=== PATIENT | female | born 2000 | race Caucasian/White ===

== ENCOUNTER 2021-02-14 03:28 | Emergency (ER) | payer BC ==
[2021-02-14] MEDS ORDERED: KEPPRA 500MG500 MG PO (03:50)
[2021-02-14] MEDS ORDERED: LEXAPRO 10MG10 MG PO (03:51)
[2021-02-14] MEDS ORDERED: LO LOESTRIN FE1 TAB PO (03:51)
[2021-02-14 04:37] LABS: HEMOGLOBIN 12.9 g/dL (12.5-16.0); MEAN CELL VOLUME 90 fl (78-100); MEAN CORPUSCULAR HEMOGLOBIN 30 pg (27-31); MEAN CORPUSCULAR HGB CONC 33 g/dL (33-37); MEAN PLATELET VOLUME 10.8 fl (7.4-10.4); PLATELET COUNT 167 K/mm3 (130-400); RED BLOOD COUNT 4.32 M/mm3 (4.10-5.30); RED CELL DISTRIBUTION WIDTH 12.5 % (11.5-14.5)
[2021-02-14 04:38] LABS: ALBUMIN 3.7 g/dL (3.5-5.0); WHITE BLOOD COUNT 23.6 K/mm3 (4.8-10.8)
[2021-02-14 04:39] LABS: POTASSIUM 3.9 mmol/L (3.5-5.1)
[2021-02-14 04:40] LABS: CALCIUM 8.8 mg/dL (8.3-10.5)
[2021-02-14 04:41] LABS: TOTAL PROTEIN 7.2 g/dL (6.4-8.3)
[2021-02-14 04:43] LABS: TOTAL BILIRUBIN 1.2 mg/dL (0.2-1.2)
[2021-02-14 04:56] LABS: BAND 15 % (0-10); LYMPHOCYTE 3 % (20-51); MONOCYTE 1 % (3-10); NEUTROPHILS 81 % (42-75)
[2021-02-14 04:57] LABS: URINE APPEARANCE CLOUDY; URINE COLOR YELLOW
[2021-02-14 04:58] LABS: PH-URINE 5.5 (5.0 - 8.0); URINE BILIRUBIN NEGATIVE (NEGATIVE); URINE BLOOD 50 ery/uL (NEGATIVE); URINE GLUCOSE NEGATIVE (NEGATIVE); URINE KETONE NEGATIVE (NEGATIVE); URINE LEUKOCYTE ESTERASE 2+ (NEGATIVE); URINE NITRATE POSITIVE (NEGATIVE); URINE PROTEIN(semi-quant) 2+ mg/dL (NEGATIVE); URINE UROBILINOGEN 1 mg/dL (NORMAL); URINE WBC >50 /hpf (0-3)
[2021-02-14] MEDS ORDERED: ZOFRAN ODT4 MG PO (05:44)
[2021-02-14] MEDS ORDERED: CIPRO500 M1 PO (05:44)
[2021-02-14 06:00] VITALS: BP 97/46
== END 2021-02-14 06:00 | disposition home or self-care (01) ==
LOC: ED 03:28
PROVIDERS: Internal Medicine
DX: N10 Acute pyelonephritis (principal); M25.511 Pain in right shoulder; G40.909 Epilepsy, unspecified, not intractable, without status epilepticus; F41.9 Anxiety disorder, unspecified; F32.9 Major depressive disorder, single episode, unspecified; Z32.02 Encounter for pregnancy test, result negative; Z79.899 Other long term (current) drug therapy
CPT/HCPCS: J0696; J1885; J7030

== ENCOUNTER 2021-02-15 08:20 | Emergency (ER) | payer BC ==
[~2021-02-15 08:20] MED LIST: CIPRO500 M1 PO; KEPPRA 500MG500 MG PO; LEXAPRO 10MG10 MG PO; LO LOESTRIN FE1 TAB PO; ZOFRAN ODT4 MG PO
[2021-02-15 09:14] LABS: HEMATOCRIT 33.2 % (37.0-47.0); HEMOGLOBIN 10.9 g/dL (12.5-16.0); MEAN CELL VOLUME 92 fl (78-100); MEAN CORPUSCULAR HEMOGLOBIN 30 pg (27-31); MEAN CORPUSCULAR HGB CONC 33 g/dL (33-37); PLATELET COUNT 166 K/mm3 (130-400); RED BLOOD COUNT 3.63 M/mm3 (4.10-5.30); RED CELL DISTRIBUTION WIDTH 12.6 % (11.5-14.5)
[2021-02-15 09:53] LABS: BAND 11 % (0-10); LYMPHOCYTE 4 % (20-51); MONOCYTE 3 % (3-10); NEUTROPHILS 82 % (42-75)
[2021-02-15 09:54] LABS: POTASSIUM 3.4 mmol/L (3.5-5.1)
[2021-02-15 09:55] LABS: CALCIUM 8.2 mg/dL (8.3-10.5)
[2021-02-15 10:29] LABS: URINE APPEARANCE HAZY; URINE BILIRUBIN NEGATIVE (NEGATIVE); URINE BLOOD 50 ery/uL (NEGATIVE); URINE COLOR YELLOW; URINE GLUCOSE NEGATIVE (NEGATIVE); URINE KETONE NEGATIVE (NEGATIVE); URINE LEUKOCYTE ESTERASE 1+ (NEGATIVE); URINE NITRATE NEGATIVE (NEGATIVE); URINE PROTEIN(semi-quant) 2+ mg/dL (NEGATIVE); URINE UROBILINOGEN NORMAL (NORMAL); URINE WBC 31-50 /hpf (0-3)
[2021-02-15 11:47] VITALS: BP 104/57
== END 2021-02-15 12:02 | disposition home or self-care (01) ==
LOC: ED 08:20
PROVIDERS: Family Medicine
DX: N12 Tubulo-interstitial nephritis, not specified as acute or chronic (principal); F41.9 Anxiety disorder, unspecified; F32.9 Major depressive disorder, single episode, unspecified; G40.909 Epilepsy, unspecified, not intractable, without status epilepticus; Z79.899 Other long term (current) drug therapy
CPT/HCPCS: J0696; J7030

== ENCOUNTER → 2021-04-15 | Outpatient (CLI) | payer BC | LOC: LAB 15:31 | DX: U07.1 COVID-19 (principal) ==